=== PATIENT | female | born 1995 | race American Indian/Alaskan Native ===

== ENCOUNTER 2018-01-06 12:38 | Outpatient (CLI) | payer BC ==
--- NOTE | 2018-01-06 13:49 | Ultrasound Report ---
Right mammogram: Patient presents with recently palpable lump in the left breast. Indicates it has increased in size with menstruation and then decreased in size. Imaging of the area of concern in the 6:00 location 3 cm from the nipple demonstrates a circumscribed slightly lobulated, elongated hypoechoic nodule which is mildly inhomogeneous. There is mild increased distal echoes. It measures approximately 7.3 x 1.1 cm. There is no internal flow with color imaging. 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 Recommendation: Repeat ultrasound in 6 months to confirm stability. Findings and recommendations have been discussed with the patient. BI-RADS CATEGORY: 3 = Probably benign ACR BI-RADS MAMMOGRAPHIC CODES: 0 = Needs additional imaging evaluation; 1 = Negative; 2 = Benign; 3 = Probably benign; 4 = Suspicious; 5 = Malignant; 6 = Known biopsy-proven malignancy COMMENT: 1. Dense breast tissue, i.e., adenosis, fibrocystic changes, etc., may obscure an underlying neoplasm. 2. Approximately 10% of cancers are not detected with mammography. 3. A negative mammography report should not delay biopsy if a clinically suspicious mass is present.
== END 2018-01-06 12:39 | disposition home or self-care (01) ==
LOC: SPVWC 12:38
PROVIDERS: ATTEND Family Medicine
DX: D24.2 Benign neoplasm of left breast (principal); D24.1 Benign neoplasm of right breast